=== PATIENT | female | born 1955 | race Caucasian/White ===

== ENCOUNTER 2021-10-04 08:10 | Day surgery (SDC) | payer BC ==
[2021-10-02 10:20] VITALS: BMI 36.6
[2021-10-04] MEDS ORDERED: CEFAZOLIN 2 GM in DEXTROSE 5%-WATER - 50 ML IVPB ONE (10:00)
[2021-10-04] MEDS ORDERED: TRANEXAMIC ACID 1000 MG/10 ML VIAL IVPUSH ONE (10:00)
[2021-10-04] MEDS ORDERED: BUPIVACAINE HCL/PF 0.5% (5 MG/ML) 30 ML VIAL IJ ONE (10:06)
[2021-10-04] MEDS ORDERED: BUPIVACAINE LIPOSOME/PF (EXPAREL) 266 MG/20 ML VIAL ONE (10:06)
[2021-10-04] MEDS ORDERED: SODIUM CHLORIDE 0.9% P/F 10 ML VIAL IJ ONE (10:06)
[2021-10-04] MEDS ORDERED: MIDAZOLAM HCL 2 MG/2 ML SINGLE DOSE VIAL ONE ×2 (10:06→12:00)
[2021-10-04] MEDS ORDERED: TRANEXAMIC ACID 1000 MG/10 ML VIAL ONE ×2 (10:53→12:10)
[2021-10-04] MEDS ORDERED: ceFAZolin SODIUM 1 GM VIAL ONE ×2 (12:10→20:03)
[2021-10-04] MEDS ORDERED: DEXAMETHASONE SOD PHOSPHATE 4 MG/1 ML VIAL ONE (12:10)
[2021-10-04] MEDS ORDERED: ONDANSETRON 4 MG/2 ML VIAL ONE (12:10)
[2021-10-04] MEDS ORDERED: ePHEDrine SULFATE 50 MG/1 ML AMPULE ONE (12:21)
[2021-10-04] MEDS ORDERED: PROPOFOL 20 ML ONE (14:09)
[2021-10-04] MEDS ORDERED: MAG HYDROX/AL HYDROX/SIMETH 30 ML UNIT-DOSE CUP PO PRN (14:37)
[2021-10-04] MEDS ORDERED: oxyCODONE HCL 5 MG TABLET PO PRN (14:42)
[2021-10-04] MEDS ORDERED: ONDANSETRON 4 MG/2 ML VIAL IVPUSH PRN (14:42)
[2021-10-04] MEDS ORDERED: PATIENT'S OWN MEDICATION (NON-FORMULARY) (Denosumab 60 MG/ML Disp.Syrin) SQ SCH (14:45)
[2021-10-04] MEDS ORDERED: LACTATED RINGERS SOLUTION 1,000 ML IV SCH (14:45)
[2021-10-04] MEDS: ACETAMINOPHEN 500 MG TABLET (FP) PO SCH ×3 (15:05→20:30)
[2021-10-04] MEDS ORDERED: ACETAMINOPHEN INJECTION 100 ML IVPB ONE (15:06)
[2021-10-04] MEDS ORDERED: DEXTROSE 5%-WATER - 100 ML IVPB ONE (20:03)
[2021-10-04] MEDS: oxyCODONE HCL 5 MG TABLET PO PRN ×2 (20:29→23:31)
[2021-10-04] MEDS: CEFAZOLIN 2 GM in DEXTROSE 5%-WATER - 100 ML IVPB SCH (20:31)
[2021-10-04] MEDS ORDERED: ATORVASTATIN CA 20 MG TABLET (FP) PO SCH (22:00)
[2021-10-04] MEDS ORDERED: CELECOXIB 200 MG CAPSULE PO SCH (22:00)
[2021-10-04] MEDS ORDERED: METOPROLOL TARTRATE 50 MG TABLET (FP) PO SCH (22:00)
[2021-10-04] MEDS ORDERED: oxyCODONE HCL 10 MG SUSTAINED ACTING TABLET PO SCH (22:00)
[2021-10-04] MEDS: ASPIRIN 81 MG CHEWABLE TABLETS PO SCH (22:40)
[2021-10-04] MEDS: SENNOSIDES/DOCUSATE COMBO (SENNA PLUS) TABLET (UD) PO SCH (22:41)
[2021-10-04] MEDS: CALCIUM 500MG/VIT-D 200 UNITS COMBO TABLET (FP) PO SCH (22:41)
[2021-10-04] MEDS: ASCORBIC ACID 500 MG TABLET (FP) PO SCH (22:41)
[2021-10-05] MEDS ORDERED: DEXTROSE 5%-WATER - 100 ML IVPB ONE (02:45)
[2021-10-05] MEDS ORDERED: ceFAZolin SODIUM 1 GM VIAL ONE (02:45)
[2021-10-05] MEDS: ACETAMINOPHEN 500 MG TABLET (FP) PO SCH ×3 (02:49→14:54)
[2021-10-05] MEDS: CEFAZOLIN 2 GM in DEXTROSE 5%-WATER - 100 ML IVPB SCH (05:40)
[2021-10-05] MEDS: ONDANSETRON 4 MG/2 ML VIAL IVPUSH PRN ×2 (05:40→13:05)
[2021-10-05] MEDS ORDERED: LEVOTHYROXINE NA 75 MCG TABLET (FP) PO SCH (07:00)
[2021-10-05] MEDS ORDERED: traMADol HCL 50 MG TABLET PO PRN (07:17)
[2021-10-05] MEDS: KETOROLAC TROMETHAMINE 30 MG/1 ML VIAL IVPUSH SCH ×2 (08:00→13:47)
[2021-10-05 08:15] LABS: CREATININE 0.7 mg/dl (0.55-1.3)
[2021-10-05 09:40] LABS: EOS % 0.1 % (0-4.5); HEMATOCRIT 35.9 % (32.4-45.2); HEMOGLOBIN 11.8 GM/dL (10.7-15.3); LYMPH % 10.3 % (8-40); MEAN CELL VOLUME 84.7 fl (80-96); MEAN PLT VOLUME 9.8 fl (7.5-11.1); MONO % 11.7 % (3.8-10.2); NEUT % 77.9 % (42.8-82.8); PLATELET COUNT 215 10^3/uL (134-434); RBC 4.23 M/mm3 (3.60-5.2); RDW 13.5 % (11.6-15.6); WHITE BLOOD COUNT 11.4 K/mm3 (4.0-10.0)
[2021-10-05] MEDS ORDERED: TRIAMTERENE AND HCTZ - 37.5 MG/25 MG CAPSULE PO SCH (10:00)
[2021-10-05] MEDS ORDERED: RAMIPRIL 5 MG CAPSULE PO SCH ×2 (10:00)
[2021-10-05] MEDS ORDERED: TOPIRAMATE 50 MG PO SCH (10:00)
[2021-10-05] MEDS ORDERED: TOPIRAMATE 25 MG TABLET PO SCH (10:00)
[2021-10-05] MEDS ORDERED: POLYETHYLENE GLYCOL (HEALTHYLAX) 3350 17 GM PACKET PO SCH ×2 (10:00→22:00)
[2021-10-05] MEDS ORDERED: PANTOPRAZOLE 40 MG TABLET PO SCH (10:00)
[2021-10-05] MEDS ORDERED: MULTIVITAMINS (DAILY MVI) TABLET (FP) PO SCH (10:00)
[2021-10-05] MEDS ORDERED: PATIENT'S OWN MEDICATION (NON-FORMULARY) (Omeprazole 20 MG Capsule.Dr) PO SCH (10:00)
[2021-10-05] MEDS: ASPIRIN 81 MG CHEWABLE TABLETS PO SCH (10:38)
[2021-10-05] MEDS: SENNOSIDES/DOCUSATE COMBO (SENNA PLUS) TABLET (UD) PO SCH (10:38)
[2021-10-05] MEDS: CALCIUM 500MG/VIT-D 200 UNITS COMBO TABLET (FP) PO SCH (10:38)
[2021-10-05] MEDS: ASCORBIC ACID 500 MG TABLET (FP) PO SCH (10:38)
[2021-10-05 14:21] VITALS: PULSE 69; TEMP 98.2
[2021-10-05 14:41] VITALS: BP 143/53
== END 2021-10-05 15:00 | disposition home or self-care (01) ==
LOC: FASUSAT 08:10 → FM/S 15:51 → FASUSAT 10-05 15:00
PROVIDERS: ATTEND Orthopaedic Surgery
PROC: 0SRC069 Replacement of Right Knee Joint with Oxidized Zirconium on Polyethylene Synthetic Substitute, Cemented, Open Approach (ICD-10-PCS; principal; 2021-10-04 12:30)
DX: M17.11 Unilateral primary osteoarthritis, right knee (principal)
CPT/HCPCS: 27447; C1776; 36415; 73560-TC-RT-FY; 80048; 85025; 88304-TC; 88311-TC; 94760; 97010-GP; 97116-GP; 97161-GP; J0131